=== PATIENT | male | born 1960 | race Caucasian/White ===

== ENCOUNTER 2017-04-29 23:55 | Emergency (ER) | payer OTHER ==
[~2017-04-29] VITALS: Ht 188 cm; Wt 92.5 kg
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
[~2017-04-29 23:55] MED LIST: ADVAIR 1001 DISK W/D PO; ALBUTEROL17 GM INH; ALPRAZOLAM PO; ASPIRIN81 M1 PO; CELEBREX PO; CIPRO PO; COREG12.5 MG PO; COZAAR100 MG PO; DELSYM30 MG/5 M1 PO; ENDOCET 10-3251 TAB PO; FLEXERIL10 MG PO; FLOMAX0.4 M1 PO; GABAPENTIN600 MG PO; GLUCOPHAGE500 MG PO; HYDROCODON-ACE1 EAC5 PO; KLONOPIN1 MG PO; LASIX20 MG PO; LEVAQUIN PO; LISINOPRIL PO; LISINOPRIL10 MG PO; LISINOPRIL20 MG PO; LOPRESSOR PO; LORTAB 5/500 TA1 TA2 PO; LORTAB 7.5-5001 TAB PO; MEDROL PO; MEDROL4 MG/DOSE- PO; METFORMIN PO; METOPROLOL TAR25 MG PO; MUCINEX DM TABL1 BOX PO; NIASPAN PO; PAROXETINE HCL20 M1 PO; PAXIL PO; PAXIL10 MG PO; PERCOCET 10/3251 TAB PO; PREDNISONE PO; PRILOSEC PO; PRILOSEC40 MG PO; REBETOL200 MG PO; RESTORIL15 MG PO; SPIRIVA18 MCG INH; SYMBICORT INH; TEMAZEPAM PO; TRAZODONE PO
== END 2017-04-30 02:21 | disposition home or self-care (01) ==
LOC: CED 23:55
DX: S40.251A Superficial foreign body of right shoulder, initial encounter (principal); I10 Essential (primary) hypertension; J44.9 Chronic obstructive pulmonary disease, unspecified; K74.60 Unspecified cirrhosis of liver; F41.9 Anxiety disorder, unspecified; Z88.5 Allergy status to narcotic agent; Y92.9 Unspecified place or not applicable; W45.8XXA Other foreign body or object entering through skin, initial encounter
CPT/HCPCS: 73090; 99283